=== PATIENT | female | born 1975 | race Caucasian/White ===

== ENCOUNTER 2018-07-14 19:01 | Emergency (ER) | payer OTHER ==
[2018-07-14] MEDS ORDERED: NS 1,000 ML IV ONE (19:18)
--- NOTE | 2018-07-14 19:21 | EDPHY ---
H & P Stated Complaint: lower abd pain, feels same as previous kidney stones Time Seen by Provider: 07/14/18 19:18 HPI/ROS: HPI: This is a 42-year-old female who presents with Chief Complaint: lower abd pain, feels same as previous kidney stones Location: Lower bilateral abdomen Quality: Pain Duration: 7 days Signs and Symptoms: no fever, no nausea, no vomiting, no hematemesis, no blood in stool, no abdominal bloating, no diarrhea, no back pain, + urinary urgency, + blood in urine, no vaginal bleeding/discharge, no indigestion, no chest pain, no shortness of breath Timing: Acute on chronic, intermittent episodes Severity: Moderate Context: Patient has a history kidney stones, last ER visit was in 2016, presents with lower abdominal pain that is radiating into her bladder over the last 7 days. She reports that she is having intermittent episodes of cramping, sharp pain that was similar to her previous kidney stones. She has always passed these kidney stones on her own and has never required surgery. She noted blood in her urine yesterday and complains of urinary urgency. She has no fever, back pain, vaginal discharge, vaginal bleeding, decreased appetite, nausea, vomiting. She is eating and drinking without difficulty. No heavy lifting or injury. Modifying Factors: None Comment: ROS: A comprehensive 10 system review of systems is otherwise negative aside from elements mentioned in the history of present illness. MEDICAL/SURGICAL/SOCIAL HISTORY: Medical history: History of bilateral kidney stones. Last menstrual period 10 days ago. Surgical history: Denies Social history: Patient is a student. Nonsmoker. Family history noncontributory. CONSTITUTIONAL: Appears uncomfortable nontoxic-appearing middle-aged white female, awake and alert, no obvious distress HEENT: Atraumatic and normocephalic, PERRL, EOMI. Nares patent; no rhinorrhea; no nasal mucosal edema. Tympanic membranes clear. Oropharynx clear, no exudate and moist pink mucosa. Airway patent. No lymphadenopathy. No meningismus. Cardiovascular: Normal S1/S2, regular rate, regular rhythm, without murmur rub or gallop. PULMONARY/CHEST: Symmetrical and nontender. Clear to auscultation bilaterally. Good air movement. No accessory muscle usage. ABDOMEN: Soft, nondistended, mild suprapubic tenderness, no rebound, no guarding, no peritoneal signs, no masses or organomegaly. No CVAT. Bowel sounds heard x4 quadrants. EXTREMITIES: 2/2 pulses, strength 5/5, no deformities, no clubbing, no cyanosis or edema. NEUROLOGICAL: no focal neuro deficits. GCS 15. SKIN: Warm and dry, no erythema. no rash. Good capillary refill. Source: Patient, RN/MD Exam Limitations: No limitations - Personal History LMP (Females 10-55): 8-14 Days Ago Current Tetanus Diphtheria and Acellular Pertussis (TDAP): Yes Tetanus Vaccine Date: last 10 years - Medical/Surgical History Hx Asthma: No Hx Chronic Respiratory Disease: No Hx Diabetes: No Hx Cardiac Disease: No Hx Renal Disease: No Hx Cirrhosis: No Hx Alcoholism: No Hx HIV/AIDS: No Hx Splenectomy or Spleen Trauma: No Other PMH: kidney stones in past- no other illness per pt. - Social History Smoking Status: Never smoked Constitutional: Initial Vital Signs Temperature (C) 36.7 C 07/14/18 19:08 Heart Rate 77 07/14/18 19:08 Respiratory Rate 16 07/14/18 19:08 Blood Pressure 120/82 H 07/14/18 19:08 O2 Sat (%) 100 07/14/18 19:08 O2 Delivery Mode Room Air Allergies/Adverse Reactions: Penicillins Allergy (Unknown, Verified 03/22/10 18:57) Home Medications: Medication Instructions Recorded Ondansetron Odt [Zofran Odt 4 mg 4 mg PO Q4 PRN #12 tab 07/14/18 (*)] Tamsulosin HCl [Flomax 0.4 MG (*)] 0.4 mg PO DAILY #10 cap 07/14/18 oxyCODONE/APAP 5/325 [Percocet 1 - 2 tab PO Q4H PRN #10 tab 07/14/18 5/325 (*)] Medical Decision Making - Diagnostics Imaging Results: Imaging Impressions Abdomen/Pelvis CT 07/14/18 19:25 Impression: A 4-mm calculus on the bladder side of the ureterovesical junction on the left, with mild left hydronephrosis and hydroureter. Bilateral nonobstructive nephrolithiasis. Results called and discussed with Tiffany Eduardo PA-C, on July 14, 2018 at 2053. Attention: This CT examination is specifically designed to evaluate patients who are clinically suspected of having acute obstructive uropathy. This examination does not use radiographic contrast, and as such, provides only a limited evaluation of the abdomen, pelvis, and retroperitoneum. If there is further clinical suspicion for pathological conditions other than obstructive uropathy, a complete CT evaluation of the abdomen and pelvis utilizing intravenous, oral, and rectal contrast should be considered. ED Course/Re-evaluation: Vital signs reviewed and stable upon arrival. No systemic signs. IV access, laboratory studies, urinalysis and CT abdomen and pelvis scan without contrast ordered Given 2 L normal saline, IV Toradol 30 mg and IV Dilaudid 0.5 mg 1941: Urinalysis shows 2+ blood, 15-25 RBCs, trace bacteria but no jaki signs of infection. 2022: Laboratory studies reviewed and show sodium 134, BUN 14, creatinine 0.7. Not . 2054: Called by radiologist, Dr. Jefferson, who reports that CT abdomen and pelvis scan shows left stone measuring 4 mm posterior to the UVJ on the bladder side with only mild hydronephrosis. Patient does have multiple stones in both kidneys. 2057: Reassessed patient who reports moderate relief of symptoms. Given Flomax and prescriptions for Flomax, Percocet and Zofran. Tolerating p.o. Without difficulty and states adequate pain control. Appropriate for discharge home and outpatient treatment. Urology follow-up This patient was seen under the supervision of my secondary supervising physician. I evaluated and cared for this patient with attending. Differential Diagnosis: Flank pain including but not limited to musculoskeletal causes, kidney stone, pyelonephritis, shingles, and intra-abdominal causes such as diverticulitis and appendicitis. - Data Points Laboratory Results: Laboratory Results 07/14/18 19:41 07/14/18 07/14/18 07/14/18 19:41 19:41 19:25 Sodium 134 mEq/L L mEq/L (135-145) Potassium 4.5 mEq/L mEq/L (3.5-5.2) Chloride 102 mEq/L mEq/L (97-110) Carbon Dioxide 23 mEq/l mEq/l (22-31) Anion Gap 9 mEq/L mEq/L (6-14) BUN 14 mg/dL mg/dL (7-23) Creatinine 0.7 mg/dL mg/dL (0.6-1.0) Estimated GFR > 60 Glucose 87 mg/dL mg/dL (70-100) Calcium 9.1 mg/dL mg/dL (8.5-10.4) Beta HCG, Qual NEGATIVE Urine Color COLORLESS Urine Appearance CLEAR Urine pH 6.0 (5.0-7.5) Ur Specific [place] 1.005 (1.002-1.030) Urine Protein NEGATIVE (NEGATIVE) Urine Ketones NEGATIVE (NEGATIVE) Urine Blood 2+ H (NEGATIVE) Urine Nitrate NEGATIVE (NEGATIVE) Urine Bilirubin NEGATIVE (NEGATIVE) Urine Urobilinogen NEGATIVE EU EU (0.2-1.0) Ur Leukocyte Esterase NEGATIVE (NEGATIVE) Urine RBC 15-25 /hpf H /hpf (0-3) Urine WBC 1-3 /hpf /hpf (0-3) Ur Epithelial Cells TRACE /lpf /lpf (NONE-1+) Urine Bacteria TRACE /hpf H /hpf (NONE SEEN) Urine Glucose NEGATIVE (NEGATIVE) Medications Given: Discontinued Medications Hydromorphone HCl (Dilaudid) 0.5 mg IVP EDNOW ONE Stop: 07/14/18 19:27 Last Admin: 07/14/18 19:50 Dose: 0.5 mg Sodium Chloride (Ns) 1,000 mls @ 0 mls/hr IV ONCE ONE; Wide Open PRN Reason: Protocol Stop: 07/14/18 19:19 Last Admin: 07/14/18 19:49 Dose: 1,000 mls Ketorolac Tromethamine (Toradol) 30 mg IVP EDNOW ONE Stop: 07/14/18 19:26 Last Admin: 07/14/18 19:49 Dose: 30 mg Oxycodone/Acetaminophen (Percocet 5/325mg Prepack#4) 1 btl TAKEHOME EDNOW ONE Stop: 07/14/18 20:58 Last Admin: 07/14/18 21:05 Dose: 1 btl Promethazine HCl (Phenergan 25 Mg Prepack #4) 1 btl TAKEHOME EDNOW ONE Stop: 07/14/18 20:58 Last Admin: 07/14/18 21:07 Dose: 1 btl Tamsulosin HCl (Flomax) 0.4 mg PO EDNOW ONE Stop: 07/14/18 20:53 Last Admin: 07/14/18 21:05 Dose: 0.4 mg Departure - Departure Disposition: Home, Routine, Self-Care Clinical Impression: Left ureteral calculus, Renal colic on left side, Bilateral nephrolithiasis Condition: Good Instructions: Oxycodone/Acetaminophen (By mouth), Ondansetron (By mouth), Kidney Stones (ED), Lithotripsy (DC), Renal Colic (ED), How to Strain Your Urine (ED), Ureteral Stones (ED) Additional Instructions: Consume a minimum of 8-10 glasses of water or electrolyte fluid replacement drinks that include Gatorade, Powerade, Pedialyte. Strain all of your urine until your stone passes. Take Zofran 1 tab every 4 hours as needed for nausea, vomiting. Take Tylenol 650 mg every 4 hours and/or Ibuprofen 600 mg every 8 hours with food as needed for pain. Use Percocet every 6 hours as needed for severe/break through pain. Do not use Tylenol and Percocet concomitantly. Take Flomax daily until the stone passes. Establish care with Urology to discuss your kidney stones and treatment options. Referrals: Behzad Montejo MD [Medical Doctor] - As per Instructions Prescriptions: Ondansetron Odt [Zofran Odt 4 mg (*)] 4 mg PO Q4 PRN #12 tab PRN Reason: Nausea/Vomiting, Use 1st oxyCODONE/APAP 5/325 [Percocet 5/325 (*)] 1 - 2 tab PO Q4H PRN #10 tab PRN Reason: Pain, Severe Tamsulosin HCl [Flomax 0.4 MG (*)] 0.4 mg PO DAILY #10 cap
[2018-07-14] MEDS ORDERED: KETOROLAC 30 MG/1 ML SDV IVP ONE (19:25)
[2018-07-14] MEDS ORDERED: HYDROmorphONE/DILAUDID 2 MG/ML INJ IVP ONE (19:26)
[2018-07-14] MEDS ORDERED: TAMSULOSIN HCL 0.4 MG CAP PO ONE (20:52)
[2018-07-14] MEDS ORDERED: PROMETHAZINE 25 MG PREPACK #4 BTL TAKEHOME ONE (20:57)
[2018-07-14] MEDS ORDERED: OXYCODONE/APAP 5/325MG PREPACK#4 BTL TAKEHOME ONE (20:57)
[2018-07-14 21:25] VITALS: BP 130/86
== END 2018-07-14 21:25 | disposition home or self-care (01) ==
DX: N23 Unspecified renal colic (principal); N13.2 Hydronephrosis with renal and ureteral calculous obstruction; N21.0 Calculus in bladder; E86.9 Volume depletion, unspecified
CPT/HCPCS: 96374; J1170; J1885